=== PATIENT | female | born 1940 | race Hispanic/Latino ===

== ENCOUNTER 2017-12-22 09:56 | Emergency (ER) | payer MEDICARE ==
[2017-12-22 10:11] VITALS: O2SAT 100
[2017-12-22] MEDS ORDERED: Lidocaine 1% Inj (20ml) INFIL STA (10:34)
[2017-12-22] MEDS ORDERED: Tdap Vaccine 0.5 ml Vial (10-64 yrs) IM ONE ×2 (10:34→10:46)
--- NOTE | 2017-12-22 10:51 | C.PDOC ---
History Of Present Illness 77 y/o female presents to the ED with multiple injuries after a fall. Patient states she tripped and fell, sustaining an injury to the left knee and two separate lacerations on the left forehead. She denies losing consciousness after the fall. The patient also denies any nausea, dizziness, severe headache, numbness, weakness, tingling or fever. She is not currently on any blood thinners. - HPI Time Seen by Provider: 12/22/17 10:26 Chief Complaint (Nursing): Trauma History Per: Patient History/Exam Limitations: no limitations Onset/Duration Of Symptoms: Hrs Location Of Injury: Left: Head, Knee - Fall Fall:Prior To Injury: Tripped Past Medical History Reviewed: Historical Data, Nursing Documentation, Vital Signs Vital Signs: Last Vital Signs Temp 98.3 F 12/22/17 10:06 Pulse 105 H 12/22/17 10:06 Resp 20 12/22/17 10:06 BP 173/88 H 12/22/17 10:06 Pulse Ox 100 12/22/17 10:06 - Medical History PMH: Anxiety, HTN Family History: States: No Known Family Hx - Social History Hx Alcohol Use: No Hx Substance Use: No - Immunization History Hx Tetanus Toxoid Vaccination: No Hx Influenza Vaccination: No Hx Pneumococcal Vaccination: Yes Review Of Systems Except As Marked, All Systems Reviewed And Found Negative. Constitutional: Negative for: Fever, Weakness Gastrointestinal: Negative for: Nausea, Vomiting Skin: Positive for: Lesions (left knee abrasion) Neurological: Positive for: Other (Head injury, no LOC). Negative for: Weakness, Numbness, Incoordination, Change in Speech, Confusion, Headache, Dizziness Physical Exam - Physical Exam Appears: Non-toxic, No Acute Distress Skin: Normal Color, Warm, Dry, Other (left knee abrasions) Head: Normacephalic, Laceration (two laceration to the left forehead, both 1.5 cm in length, with minimal active bleeding) Eye(s): bilateral: Normal Inspection, PERRL, EOMI Ear(s): Bilateral: Normal Nose: Normal Oral Mucosa: Moist Neck: Normal, Normal ROM, No Midline Cervical Tenderness, Supple Chest: Symmetrical Cardiovascular: Rhythm Regular, No Murmur Respiratory: Normal Breath Sounds, No Rales, No Rhonchi, No Wheezing Extremity: Left: Other (superficial abrasion of the left knee), Bilateral: Normal Color And Temperature, Normal ROM Pulses: Left Dorsalis Pedis: Normal, Right Dorsalis Pedis: Normal Neurological/Psych: Oriented x3, Normal Speech, Normal Cranial Nerves, Normal Motor, Normal Sensation Gait: Steady ED Course And Treatment O2 Sat by Pulse Oximetry: 100 (RA) Pulse Ox Interpretation: Normal Laceration - Laceration Repair Left forehead laceration Wound Length (In cm): 1.5 cm (2 wounds) Description Of Wound: Linear Wound Cleansed With: Betadine, Sterile Saline Anesthesia: Lidocaine 1% Wound Examination: Irrigated With Saline, No FB With Wound Exploration Wound Closure: Suture (3 sutures to each wound) Suture Technique And Material Used: Prolene (5-0) Wound Complexity: Simple Medical Decision Making Medical Decision Making: Assessment: 77 y/o female with head lacerations and knee abrasion Plan: -Tetanus -Lidocaine 1% ordered for procedure I discussed the risk from radiation verses the benefit of having a CT scan with patient and daughter at bedside. The patient is not on any blood thinners, had no LOC, dizziness and normal neuro exam. The daughter is a hospital employee and understands well. We then decided that no CT scan would be done at this time. Laceration repaired without difficulty. Tolerated well by patient. Bacitracin and sterile wound dressing applied. Educated patient regarding wound care. Advise return to the ER if any alteration in behavior or mental status, severe headache, nausea, persistent vomiting, or loss of consciousness occurs. Disposition Counseled Patient/Family Regarding: Diagnosis, Need For Followup - Disposition Referrals: Dexter Unger MD [Staff Provider] - Disposition: HOME/ ROUTINE Disposition Time: 11:34 Condition: STABLE Additional Instructions: Keep area clean and dry. May wash gently with soap and water. Return to ER if fever occurs, redness or swelling around wound, pus in the wound. Please follow up with your primary doctor, clinic, or urgent care for suture removal in 7-8 days Instructions: Laceration Repair With Stitches (DC) Forms: [employer] (Moroccan) - POA Present On Arrival: None - Clinical Impression Clinical Impression: Laceration of forehead, Fall from slip, trip, or stumble - PA / SECURITY SYSTEMS TECHNICIAN / Resident Statement MD/DO has reviewed & agrees with the documentation as recorded. - Scribe Statement The provider has reviewed the documentation as recorded by the Scribe (Gloria Simmons) All medical record entries made by the Scribe were at my direction and personally dictated by me. I have reviewed the chart and agree that the record accurately reflects my personal performance of the history, physical exam, medical decision making, and the department course for this patient. I have also personally directed, reviewed, and agree with the discharge instructions and disposition.
[2017-12-22] MEDS ORDERED: Bacitracin 500 Units/gm Oint Foilpak UD ONE (11:38)
[2017-12-22 11:47] VITALS: BP 137/78; PULSE 79; RESP 18; TEMP 97.9
== END 2017-12-22 11:48 | disposition home or self-care (01) ==
LOC: C.ER 09:56
DX: S01.81XA Laceration without foreign body of other part of head, initial encounter (principal); W01.0XXA Fall on same level from slipping, tripping and stumbling without subsequent striking against object, initial encounter; Y92.9 Unspecified place or not applicable; Z23 Encounter for immunization